=== PATIENT | female | born 1990 | race Caucasian/White ===

== ENCOUNTER 2016-12-31 12:16 | Emergency (ER) | payer MEDICAID ==
[~2016-12-31] VITALS: Ht 157.5 cm; Wt 89.7 kg
[2016-12-31 12:37] VITALS: Ht 157.5 cm; Wt 89.7 kg
[2016-12-31 14:56] LABS: ADD SCAN DIFF NO
[2016-12-31 14:58] LABS: BASOPHILS % 0.6 % (0.0-2.0); EOSINOPHILS # 0.1 10^3/ul (0.0-0.5); EOSINOPHILS % 1.7 % (0.0-7.0); HEMATOCRIT 36.8 % (37.0-47.0); HEMOGLOBIN 12.6 g/dl (12.0-16.0); LYMPHOCYTES # 1.7 10^3/ul (0.8-2.9); LYMPHOCYTES % 23.7 % (15.0-51.0); MEAN CORPUSCULAR HEMOGLOBIN 29.5 pg (29.0-33.0); MEAN CORPUSCULAR HGB CONC 34.2 g/dl (32.0-37.0); MEAN CORPUSCULAR VOLUME 86.2 fl (82.0-101.0); MEAN PLATELET VOLUME 11.2 fl (7.4-10.4); MONOCYTE # 0.6 10^3/ul (0.3-0.9); MONOCYTES % 7.7 % (0.0-11.0); NEUTROPHIL # 4.7 10^3/ul (1.6-7.5); NEUTROPHILS % 65.7 % (39.0-77.0); PLATELET COUNT 246 10^3/UL (140-415); RED BLOOD COUNT 4.27 10^6/ul (4.20-5.40); WHITE BLOOD COUNT 7.1 10^3/ul (4.8-10.8)
[2016-12-31 15:01] LABS: ADD UMIC YES; URINE BILIRUBIN (Dip) NEGATIVE (NEGATIVE); URINE BLOOD (Dip) 3+ (NEGATIVE); URINE COLOR LT. YELLOW (YELLOW); URINE GLUCOSE (Dip) NEGATIVE (NEGATIVE); URINE KETONES (Dip) NEGATIVE (NEGATIVE); URINE LEUKOCYTE ESTERASE (Dip) TRACE (NEGATIVE); URINE NITRITE (Dip) NEGATIVE (NEGATIVE); URINE TOTAL PROTEIN (Dip) NEGATIVE (NEGATIVE); URINE UROBILINOGEN (Dip) 0.2 E.U./dL (0.1-1.0)
--- NOTE | 2016-12-31 15:29 | RADRPT ---
PROCEDURE: US OB. CLINICAL INDICATION: Vaginal bleeding. TECHNIQUE: Transabdominal and transvaginal views of the pelvis are available for review. COMPARISON: No prior studies are available for comparison. FINDINGS: The uterus is normal in size and echotexture measuring 8.8 x 4.7 x 5.1 cm. There is an intrauterine gestational sac with an average sac diameter of 0.39 cm consistent with a 5 weeks 0 day gestation. No definite yolk sac, pole or cardiac activity seen. There is a small subchorionic hemorrhag e. Ovaries are normal in appearance bilaterally with Doppler flow seen. The right ovary measures 3 .1 x 2.2 x 1.5 cm and the left ovary measures 2.9 x 1.3 x 2.0 cm. There are no adnexal masses or fr ee fluid in the cul-de-sac. IMPRESSION: 1. Single living intrauterine gestation which measures approximate 5 weeks 0 days plus or minus 3 da ys with estimated date of delivery of 09/02/2017. No pole or cardiac activity seen. 2. Small subchorionic hemorrhage present. RPTAT: [facility] Physician Brynn Date Time Electronically viewed and signed by Physician Brynn on 12/31/2016 15:28 /
[2016-12-31] MEDS ORDERED: ACET500C5 PO (15:59)
--- NOTE | 2016-12-31 16:02 | ERD ---
ER Documentation Chief Complaint Date/Time DATE: 12/31/16 TIME: 16:00 Chief Complaint Pt with VB X 2 days, pelvic pain. 7 weeks . HPI This 26-year-old female is approximately 7 week by dates. She complains of some vaginal bleeding for last 2 days without history of clots or tissue. She has some mild suprapubic cramping ROS All systems reviewed and are negative except as per history of present illness. Medications Home Meds Active Scripts Acetaminophen* (Tylophen*) 500 Mg Capsule, 1 CAP PO Q6H Y for PAIN AND OR ELEVATED TEMP, #15 CAP Prov:REBA OLGUIN MD 12/31/16 PMhx/Soc Medical and Surgical Hx: pt denies Medical Hx, pt denies Surgical Hx Hx Alcohol Use: No Hx Substance Use: No Hx Tobacco Use: No Smoking Status: Never smoker Physical Exam Vitals Vital Signs Date Time Temp Pulse Resp B/P Pulse Ox O2 Delivery O2 Flow Rate FiO2 12/31/16 12:37 98.6 85 20 112/55 100 Physical Exam Const: [] Alert, [id number] Head: Atraumatic Eyes: Normal Conjunctiva ENT: Normal External Ears, Nose and Mouth. Neck: Full range of motion..~ No meningismus. Resp: Clear to auscultation bilaterally Cardio: Regular rate and rhythm, no murmurs Abd: Soft, minimal suprapubic , non distended. Normal bowel sounds. No rebound no tenderness at McBurney's point no masses Skin: No petechiae or rashes Back: No midline or flank tenderness Ext: No cyanosis, or edema Neur: Awake and alert Psych: Normal Mood and Affect Result Diagram: 12/31/16 1430 Results 24 hrs Laboratory Tests Test 12/31/16 14:30 Basophils # 0.010^3/ul Basophils % 0.6% Beta HCG, Quantitative 360.9mIU/ml Eosinophils # 0.110^3/ul Eosinophils % 1.7% Hematocrit 36.8% Hemoglobin 12.6g/dl Lymphocytes # 1.710^3/ul Lymphocytes % 23.7% Mean Corpuscular Hemoglobin 29.5pg Mean Corpuscular Hemoglobin Concent 34.2g/dl Mean Corpuscular Volume 86.2fl Mean Platelet Volume 11.2fl Monocytes # 0.610^3/ul Monocytes % 7.7% Neutrophils # 4.710^3/ul Neutrophils % 65.7% Nucleated Red Blood Cells # 0.010^3/ul Nucleated Red Blood Cells % 0.0/100WBC Platelet Count 63455^3/UL Red Blood Count 4.2710^6/ul Red Cell Distribution Width 13.0% Urine Bilirubin NEGATIVE Urine Clarity SLIGHTLY CLOUDY Urine Color LT. YELLOW Urine Glucose NEGATIVE% Urine Hemoglobin 3+ Urine Ketones NEGATIVE Urine Leukocyte Esterase TRACE Urine Microscopic RBC Pending Urine Microscopic WBC Pending Urine Nitrite NEGATIVE Urine Specific Egan <=1.005 Urine Total Protein NEGATIVE Urine Urobilinogen 0.2 E.U./dL Urine pH 7.0 White Blood Count 7.110^3/ul Procedures/MDM Patient is Rh+. Urine shows no signs of infection, glucose. Quantitative hCG is 360.9. Pelvic ultrasound shows a single intrauterine gestation proximal in 5 weeks 0 days. No pole, cardiac activity or yolk sac visualized. Patient presents with vaginal bleeding first trimester with gestational sac but no pole or yolk sac. Differential includes early normal , ectopic , threatened . She will discharged home instructions for recheck in 48 hours for likely repeat examinations. She should return sooner for fevers, vomiting, new or worsening symptoms. Signs or symptoms not currently consistent with appendicitis, acute abdomen, UTI, additional causes of lower abdominal pain and vaginal bleeding. Departure Diagnosis: Primary Impression: Vaginal bleeding in patient at less than 20 weeks ges... Condition: Stable Patient Instructions: Bleeding During Early Additional Instructions: POSIBLEMENTE EMBARAZO TEMPRANO, ABORTO O ECTOPICO. CHEQUE EXAMINES OTRO VEZ EN 2 SIMENTAL, MAS PRONTO PARA MAS SIMPTOMAS O CON KIM DOCTOR DE EMBARAZO. REBA OLGUIN MD Dec 31, 2016 16:02
[2016-12-31 16:11] LABS: URINE RBCS 25-50 /HPF (0)
[2016-12-31 16:12] LABS: BACTERIA,URINE RARE; SQUAMOUS EPITHELIAL CELL,UR FEW
== END 2016-12-31 16:32 | disposition home or self-care (01) ==
LOC: FTE 12:16
DX: O20.9 Hemorrhage in early pregnancy, unspecified (principal); R10.2 Pelvic and perineal pain; Z3A.01 Less than 8 weeks gestation of pregnancy
CPT/HCPCS: 36415; 76801; 76817; 81001; 84702; 85025; 86900; 86901; Z7502; 81003